=== PATIENT | male | born 1955 | race Caucasian/White ===

== ENCOUNTER → 2018-07-25 | Outpatient (CLI) | payer BC ==
--- NOTE | 2018-07-25 14:22 | US ---
EXAMINATION TYPE: US venous doppler duplex LE RT DATE OF EXAM: 07/25/2018 1:25 PM COMPARISON: NONE CLINICAL HISTORY: M79.661, pain right leg, R22.41 swelling right leg. SIDE PERFORMED: Right TECHNIQUE: The lower extremity deep venous system is examined utilizing real time linear array sonog yogi with graded compression, doppler sonography and color-flow sonography. VESSELS IMAGED: External Iliac Vein (EIV) Common Femoral Vein Deep Femoral Vein Greater Saphenous Vein * Femoral Vein Popliteal Vein Small Saphenous Vein * Proximal Calf Veins (* superficial vessels) Right Leg: Negative for DVT Grayscale, color doppler, spectral doppler imaging performed of the deep veins of the right lower ext remity. There is normal flow, compressibility, vascular waveforms. IMPRESSION: No ultrasound evidence for acute DVT in the right lower extremity.
== END | disposition home or self-care (01) ==
LOC: RADUSWWP 13:01
PROVIDERS: ATTEND Internal Medicine
DX: R22.41 Localized swelling, mass and lump, right lower limb (principal); M79.661 Pain in right lower leg

== ENCOUNTER → 2020-07-11 | Outpatient (CLI) | payer OTHER ==
--- NOTE | 2020-07-11 11:05 | ECHOS ---
STRESS ECHOCARDIOGRAM INDICATIONS: Hypertension. MEDICATIONS: Lovastatin, amlodipine, Besylate, famotidine, Ibuprofen, trazodone. BASELINE HEART RATE: 67 BASELINE BLOOD PRESSURE: 141/69 MAXIMUM HEART RATE: 149 MAXIMUM BLOOD PRESSURE: 210/88 85% MPHR: 133 100% MPHR: 156 METS: 5.4 MAXIMUM STAGE REACHED: 2 TOTAL EXERCISE TIME: 4:00 CLINICAL INFORMATION: Baseline EKG revealed normal sinus rhythm without significant ST changes. Patient walked on standard Griffin protocol for 4 minutes, achieved a maximal heart rate of 149 beats per minute which is more than 85% of predicted maximal. Developed fatigue and shortness of breath but did not have angina or arrhythmia. EKG did not reveal any ST- segment changes to indicate ischemia. By EKG criteria, this is a negative stress test with limited exercise capacity. There was no angina or arrhythmia. Exercise capacity was limited. Baseline echo images revealed normal wall motion, wall thickening of all segments. Echo contrast was administered to optimize the quality of images. At peak exercise, there was good augmentation of left ventricular wall motion and wall thickening of all segments suggesting that there is no evidence of stress-induced ischemia on this study. FINAL IMPRESSION: 1. By EKG criteria, this is a negative stress test with limited exercise capacity. 2. Normal stress echocardiogram. Exercise capacity was limited. MMODL / IJN: [id number] /
== END | disposition home or self-care (01) ==
LOC: RADNMMAIN 09:02
PROVIDERS: ATTEND Family Medicine
DX: I10 Essential (primary) hypertension (principal); R06.09 Other forms of dyspnea
CPT/HCPCS: C8930; Q9950; 93351

== ENCOUNTER 2022-03-26 07:13 | Day surgery (SDC) | payer MEDICARE, OTHER ==
[~2022-03-26 07:13] MED LIST: ACETAMINOPHEN TAB 500 MG TAB PO PRN; HEPARIN SODIUM,PORCINE/PF 5,000 UNIT/0.5 ML SYRINGE SQ PRN
[2022-03-26] MEDS ORDERED: LIDOCAINE 1% (10MG/ML) FOR IV START INTRADERMA PRN (07:55)
[2022-03-26] MEDS ORDERED: METOCLOPRAMIDE 5 MG/ML 2 ML VIAL IVP PRN (07:55)
[2022-03-26] MEDS ORDERED: HYDROmorphone 0.5 MG/0.5 ML SYRINGE IVP PRN (07:55)
[2022-03-26] MEDS ORDERED: MIDAZOLAM 2 MG/2 ML VIAL IV PRN (07:55)
[2022-03-26] MEDS ORDERED: DEXAMETHASONE SOD PHOSPHATE 4 MG/ML 1 ML VIAL IV ONE (07:55)
[2022-03-26] MEDS ORDERED: ONDANSETRON 4 MG/2 ML VIAL IVP ONE (07:55)
[2022-03-26] MEDS ORDERED: LACTATED RINGERS 1,000 ML IV SCH (07:55)
--- NOTE | 2022-03-26 08:48 | P.GSHP ---
History of Present Illness H&P Date: 03/26/22 Chief Complaint: Right upper Quadrant pain This is a 66-year-old male presents today for laparoscopically cholecystectomy patient's had complaints of right quadrant pain. He cholelithiasis Past Medical History Past Medical History: Hypertension Additional Past Medical History / Comment(s): sleep apnea, arthritis in back - nerve involvement History of Any Multi-Drug Resistant Organisms: None Reported Past Surgical History: Adenoidectomy, Orthopedic Surgery, Tonsillectomy Additional Past Surgical History / Comment(s): shaved down the back of tongue and uvula for sleep apnea. rt hand surgery, colonoscopy Past Anesthesia/Blood Transfusion Reactions: No Reported Reaction Smoking Status: Never smoker - Past Family History Mother Family Medical History: Cancer Additional Family Medical History / Comment(s): breast Father Family Medical History: Diabetes Mellitus Additional Family Medical History / Comment(s): colostomy Medications and Allergies Home Medications Medication Instructions Recorded Confirmed Type Cyclobenzaprine [Flexeril] 5 mg PO TID PRN 03/22/15 03/26/22 History Gabapentin 300 mg PO TID 03/22/22 03/26/22 History Losartan/Hydrochlorothiazide 1 tab PO DAILY 03/22/22 03/26/22 History [Losartan-Hctz 100-25 mg Tab] QUEtiapine [SEROquel] 50 mg PO HS 03/22/22 03/26/22 History Spironolactone 25 mg PO DAILY 03/22/22 03/26/22 History amLODIPine BESYLATE 10 mg PO DAILY 03/22/22 03/26/22 History Allergies Allergy/AdvReac Type Severity Reaction Status Date / Time No Known Allergies Allergy Verified 03/26/22 07:56 Surgical - Exam Vital Signs Temp Pulse Resp BP Pulse Ox 96.1 F L 77 16 148/94 95 03/26/22 08:10 03/26/22 08:10 03/26/22 08:10 03/26/22 08:10 03/26/22 08:10 - General well developed, well nourished, no distress - Eyes PERRL - ENT normal pinna - Neck no masses - Respiratory normal expansion - Cardiovascular Rhythm: regular - Abdomen Abdomen: soft, non tender - Rectum Rectum: normal sphincter tone, no hemorrhoids Assessment and Plan Plan: Right upper quadrant pain. Cholelithiasis. We'll perform laparoscopically cholecystectomy
[2022-03-26] MEDS ORDERED: fentaNYL (PF) 50 MCG/ML 2 ML AMP ONE (09:04)
[2022-03-26] MEDS ORDERED: HYDROmorphone (PF) 1 MG/ML ONE (09:04)
[2022-03-26] MEDS ORDERED: NEOSTIGMINE 1 MG/ML 10 ML VIAL ONE (09:04)
[2022-03-26] MEDS ORDERED: KETOROLAC 15 MG/ML 1 ML VIAL ONE (09:04)
[2022-03-26] MEDS ORDERED: ROCURONIUM 10 MG/ML (5 ML VIAL) IV ONE (09:04)
[2022-03-26] MEDS ORDERED: LIDOCAINE 2% INJ 20 MG/ML (2 ML VIAL) ONE (09:04)
[2022-03-26] MEDS ORDERED: SUCCINYLCHOLINE CHLORIDE 100 MG/5 ML SYR IV ONE (09:04)
[2022-03-26] MEDS ORDERED: MIDAZOLAM 2 MG/2 ML VIAL ONE (09:04)
[2022-03-26] MEDS ORDERED: PROPOFOL 10 MG/ML 20 ML VIAL IV ONE (09:04)
[2022-03-26] MEDS ORDERED: GLYCOPYRROLATE 0.2 MG/ML 2 ML VIAL ONE (09:04)
[2022-03-26] MEDS ORDERED: BUPIVACAIN-EPI 0.25%-1:200,000 30 ML VIAL SQ ONE (09:34)
[2022-03-26] MEDS ORDERED: LACTATED RINGERS 1,000 ML IV ONE (09:34)
--- NOTE | 2022-03-26 10:05 | P.OP ---
Date of Procedure: 03/26/22 Preoperative Diagnosis: Chronically cholecystitis Cholelithiasis Postoperative Diagnosis: Chronic cholecystitis Cholelithiasis Procedure(s) Performed: Laparoscopic cholecystectomy Anesthesia: JONEL Surgeon: Shan Villanueva Estimated Blood Loss (ml): 5 Pathology: other (Gallbladder) Condition: stable Disposition: PACU Description of Procedure: The patient was placed on the operating table. The patient received a general endotracheal tube anesthesia. The patients abdomen was prepped and draped in the usual sterile fashion. Through an infraumbilical stab incision, the fascia of the anterior abdominal wall was grasped with a pair of Kochers and then the Veress needle was placed in the peritoneal cavity. Position of the Veress needle was confirmed with positive drop test. The abdomen was then insufflated. After adequate insufflation, the 10 mm trocar was placed in the peritoneal cavity. Following this the laparoscope was placed in the peritoneal cavity. The patient was placed in the head-up, right side up position and then a 5 mm trocar was placed in the right lateral and right subcostal position under direct visualization. A 8 mm trocar was placed in the epigastric position. The gallbladder was grasped in the fundus and infundibulum. Traction on the gallbladder was placed in the lateral and the cephalad positions. The triangle of Calot was visualized.. The cystic duct was bluntly dissected until the union of the cystic duct and common bile duct was seen. A critical view of safety was achieved. The cystic duct was then divided and sealed with the Harmonic scissors. A PDS Endoloop was then placed throughout the cystic duct stump. The cystic artery divided and sealed with the Harmonic scissors. The gallbladder was then removed from the liver bed using Harmonic scissors. The gallbladder was then extracted through the epigastric port site. Operative field was checked for any bleeding spots and Harmonic scissors was used to coagulate the liver bed. The abdomen was irrigated. The trocars were removed. The skin was closed using interrupted 3-0 Vicryl suture. Dermabond dressing were applied. The patient tolerated the procedure well.
[2022-03-26 10:06] VITALS: TEMP 97.1
[2022-03-26 10:36] VITALS: RESP 16
[2022-03-26 11:37] VITALS: BP 126/74; PULSE 77
== END 2022-03-26 12:17 | disposition home or self-care (01) ==
LOC: OR 07:13
PROVIDERS: ATTEND Surgery
DX: K80.10 Calculus of gallbladder with chronic cholecystitis without obstruction (principal); I10 Essential (primary) hypertension; G47.33 Obstructive sleep apnea (adult) (pediatric); F41.9 Anxiety disorder, unspecified; Z80.9 Family history of malignant neoplasm, unspecified; Z83.3 Family history of diabetes mellitus; Z79.899 Other long term (current) drug therapy
CPT/HCPCS: 88304; 47562; J2250; J1100; J2710; J0690; J2405; J3010; J1170; J1885; J0330; J2704; J1644; J2001

== ENCOUNTER → 2022-05-19 | Outpatient (CLI) | payer MEDICARE, OTHER ==
--- NOTE | 2022-05-19 10:25 | MR ---
EXAMINATION TYPE: MR lumbar spine wo con DATE OF EXAM: 05/19/2022 9:38 AM COMPARISON: THIS EXAM WAS READ DURING PACS DOWNTIME, NO PRIORS AVAILABLE. 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 IV Contrast: None FINDINGS: Alignment: The lumbar vertebral bodies have preserved heights and alignment. Cord: The conus medullaris and the distal spinal cord appear unremarkable with regards to their signa l intensity and morphology. Bones/Discs: Scattered Modic endplate changes. There are scattered high T1/high T2 signal areas scatt ered throughout the vertebral bodies likely representing hemangiomas versus focal fat. Multilevel deg enerative disc disease is noted and most pronounced at the L5-S1. Multilevel disc desiccation is pres ent. L1-L2: No significant disc pathology. Spinal canal is patent. The neural foramen are patent. L2-L3: Disc bulge with facet joint arthropathy without significant spinal canal or neural foraminal s tenosis. Mild narrowing of the ventral subarachnoid space. L3-L4: No significant disc pathology. Spinal canal is patent. The neural foramen are patent. L4-L5: Disc bulge with central disc protrusion without significant spinal canal stenosis. Facet joint arthropathy with mild to moderate left and mild right neural foraminal stenosis. L5-S1: Disc bulge with central and right central disc extrusion without significant spinal canal sten osis. Facet joint arthropathy with mild to moderate left and mild right neural foraminal stenosis. Th ere appears to be superior and inferior migration of Other findings: Parapelvic renal cysts bilaterally. IMPRESSION: 1. L4-L5 and L5-S1 disc herniations without significant spinal canal stenosis. 2. Multilevel disc degeneration changes with moderate left neural foraminal stenosis at L4-L5.
== END | disposition home or self-care (01) ==
LOC: RADMRIMAIN 08:29
PROVIDERS: ATTEND Orthopaedic Surgery
DX: M47.27 Other spondylosis with radiculopathy, lumbosacral region (principal); M51.17 Intervertebral disc disorders with radiculopathy, lumbosacral region; M48.062 Spinal stenosis, lumbar region with neurogenic claudication; M99.74 Connective tissue and disc stenosis of intervertebral foramina of sacral region
CPT/HCPCS: 72148

== ENCOUNTER 2022-08-07 12:36 | Emergency (ER) | payer MEDICARE, OTHER ==
[2022-08-07 12:43] VITALS: TEMP 98.2
[2022-08-07] MEDS ORDERED: SODIUM CHLORIDE 0.9% 1,000 ML IV STA ×2 (12:49)
--- NOTE | 2022-08-07 12:57 | ED ---
Dizziness HPI - General Chief Complaint: Dizziness Stated Complaint: LOW BP Time Seen by Provider: 08/07/22 12:43 Source: patient Mode of arrival: EMS Limitations: no limitations - History of Present Illness Initial Comments: This patient is a 66-year-old man who presents to have evaluation after he became lightheaded, sweaty and felt like he was going to pass out. The patient states he had been waiting with his and a doctor's clinic waiting room. He states that his had an appointment to see her physician. He was feeling well and then suddenly noticed that he was getting lightheaded and sweaty. The patient states it felt like he was going to his consciousness. Ambulance was called and EMS was not able to detect a blood pressure. They transported him here. Patient states that he is feeling better, the sweatiness has cleared up. He is not feeling like he is going to pass out. Patient denies having any associated chest pain, dyspnea, nausea or vomiting. The patient states that prior to this she was feeling in his usual state of health. He states in fact that he was feeling pretty good he didn't even have to take his chronic pain medication related to the usual back pain. Complaint: lightheadedness Onset/Timin -: hour(s) Timing: sudden onset Description: near-syncope History of Same: No History of Trauma: No Severity: moderate Improves With: remaining still Worsens With: nothing Associated Symptoms: diaphoresis - Related Data Home Medications Medication Instructions Recorded Confirmed Cyclobenzaprine [Flexeril] 5 mg PO TID PRN 03/22/15 08/07/22 Gabapentin 300 mg PO TID 03/22/22 08/07/22 Losartan/Hydrochlorothiazide 1 tab PO DAILY 03/22/22 08/07/22 [Losartan-Hctz 100-25 mg Tab] HYDROcodone/APAP 7.5-325MG [Story 1 tab PO BID PRN 08/07/22 08/07/22 7.5-325] Spironolactone 50 mg PO DAILY 08/07/22 08/07/22 Allergies Allergy/AdvReac Type Severity Reaction Status Date / Time No Known Allergies Allergy Verified 08/07/22 13:19 Review of Systems ROS Statement: Those systems with pertinent positive or pertinent negative responses have been documented in the HPI. ROS Other: All systems not noted in ROS Statement are negative. Constitutional: Denies: fever, chills, weakness Eyes: Denies: vision change Respiratory: Denies: cough, dyspnea Cardiovascular: Reports: as per HPI, syncope (Near-syncope). Denies: chest pain, palpitations, edema Gastrointestinal: Denies: abdominal pain, nausea, vomiting, diarrhea, constipation, melena, hematochezia Genitourinary: Denies: dysuria, hematuria Musculoskeletal: Reports: back pain (Chronic back pain, none today) Skin: Denies: rash Neurological: Denies: headache, weakness, numbness Past Medical History Past Medical History: Hypertension Additional Past Medical History / Comment(s): sleep apnea, arthritis in back - nerve involvement History of Any Multi-Drug Resistant Organisms: None Reported Past Surgical History: Adenoidectomy, Cholecystectomy, Orthopedic Surgery, Tonsillectomy Additional Past Surgical History / Comment(s): shaved down the back of tongue an d uvula for sleep apnea. rt hand surgery, colonoscopy Past Anesthesia/Blood Transfusion Reactions: No Reported Reaction Past Psychological History: Anxiety Smoking Status: Never smoker Past Alcohol Use History: Occasional Past Drug Use History: None Reported - Past Family History Mother Family Medical History: Cancer Additional Family Medical History / Comment(s): breast Father Family Medical History: Diabetes Mellitus Additional Family Medical History / Comment(s): colostomy General Exam Limitations: no limitations General appearance: alert, in no apparent distress Head exam: Present: atraumatic, normocephalic Eye exam: Present: normal appearance. Absent: scleral icterus, conjunctival injection Neck exam: Present: normal inspection Respiratory exam: Present: normal lung sounds bilaterally. Absent: respiratory distress, wheezes, rales, rhonchi, stridor Cardiovascular Exam: Present: regular rate, normal rhythm, normal heart sounds. Absent: systolic murmur, diastolic murmur, rubs, gallop GI/Abdominal exam: Present: soft. Absent: distended, tenderness, guarding, rebound, rigid, mass Extremities exam: Present: normal inspection, normal capillary refill. Absent: pedal edema, calf tenderness Back exam: Present: normal inspection. Absent: CVA tenderness (R), CVA tenderness (L) Neurological exam: Present: alert, CN II-XII intact. Absent: motor sensory deficit Skin exam: Present: warm, dry, intact, pallor. Absent: rash Course Vital Signs 08/07/22 08/07/22 08/07/22 12:37 12:43 13:01 Temperature 98.2 F Pulse Rate 78 77 78 Respiratory 18 18 15 Rate Blood Pressure 86/61 92/58 95/64 O2 Sat by Pulse 96 92 L Oximetry 08/07/22 08/07/22 08/07/22 13:10 13:20 13:30 Temperature Pulse Rate 76 76 76 Respiratory 19 15 17 Rate Blood Pressure 99/65 105/69 105/69 O2 Sat by Pulse 93 L 95 95 Oximetry 08/07/22 08/07/22 08/07/22 13:40 13:50 14:00 Temperature Pulse Rate 79 78 79 Respiratory 15 12 12 Rate Blood Pressure 108/67 110/73 110/73 O2 Sat by Pulse 99 97 98 Oximetry 08/07/22 14:10 Temperature Pulse Rate 75 Respiratory 18 Rate Blood Pressure 103/72 O2 Sat by Pulse 97 Oximetry EKG Findings - EKG Results: EKG: interpreted by ERMD, sinus rhythm, normal axis, normal ST/T - Blocks, [place], Hypertrophy, ST Abn: AV and intraventricular conduction: right bundle branch block (fixed/intermittent, complete/incomplete) (Incomplete) Medical Decision Making - Medical Decision Making I have interpreted the chest x-ray as being within normal limits. No apparent condition contributing to presyncope On reevaluation, the patient feels well. All of the symptoms have resolved and he would like to go home. We discussed the patient has elevated creatinine versus normal range. There is no previous for comparison. Patient will take plenty of fluids and have this rechecked. We discussed appropriate further care and follow-up as well as return parameters. - Lab Data Result diagrams: 08/07/22 12:49 08/07/22 12:49 Lab Results 08/07/22 08/07/22 08/07/22 Range/Units 12:49 12:49 12:49 WBC 9.0 (3.8-10.6) k/uL RBC 4.73 (4.30-5.90) m/uL Hgb 14.3 (13.0-17.5) gm/dL Hct 42.5 (39.0-53.0) % MCV 89.8 (80.0-100.0) fL MCH 30.3 (25.0-35.0) pg MCHC 33.8 (31.0-37.0) g/dL RDW 13.1 (11.5-15.5) % Plt Count 185 (150-450) k/uL MPV 9.6 Neutrophils % 73 % Lymphocytes % 16 % Monocytes % 6 % Eosinophils % 1 % Basophils % 1 % Neutrophils # 6.6 (1.3-7.7) k/uL Lymphocytes # 1.4 (1.0-4.8) k/uL Monocytes # 0.6 (0-1.0) k/uL Eosinophils # 0.1 (0-0.7) k/uL Basophils # 0.1 (0-0.2) k/uL Sodium 139 (137-145) mmol/L Potassium 4.4 (3.5-5.1) mmol/L Chloride 106 (98-107) mmol/L Carbon Dioxide 23 (22-30) mmol/L Anion Gap 10 mmol/L BUN 17 (9-20) mg/dL Creatinine 1.89 H (0.66-1.25) mg/dL Est GFR (CKD-EPI)AfAm 42 (>60 ml/min/1.73 sqM) Est GFR (CKD-EPI)NonAf 36 (>60 ml/min/1.73 sqM) Glucose 106 H (74-99) mg/dL Plasma Lactic Acid Rd 1.8 (0.7-2.0) mmol/L Calcium 8.7 (8.4-10.2) mg/dL Total Bilirubin 1.2 (0.2-1.3) mg/dL AST 45 (17-59) U/L ALT 57 H (4-49) U/L Alkaline Phosphatase 119 (38-126) U/L Troponin I (0.000-0.034) ng/mL Total Protein 6.4 (6.3-8.2) g/dL Albumin 4.1 (3.5-5.0) g/dL Coronavirus (PCR) (Not Detectd) 08/07/22 08/07/22 Range/Units 12:49 12:54 WBC (3.8-10.6) k/uL RBC (4.30-5.90) m/uL Hgb (13.0-17.5) gm/dL Hct (39.0-53.0) % MCV (80.0-100.0) fL MCH (25.0-35.0) pg MCHC (31.0-37.0) g/dL RDW (11.5-15.5) % Plt Count (150-450) k/uL MPV Neutrophils % % Lymphocytes % % Monocytes % % Eosinophils % % Basophils % % Neutrophils # (1.3-7.7) k/uL Lymphocytes # (1.0-4.8) k/uL Monocytes # (0-1.0) k/uL Eosinophils # (0-0.7) k/uL Basophils # (0-0.2) k/uL Sodium (137-145) mmol/L Potassium (3.5-5.1) mmol/L Chloride (98-107) mmol/L Carbon Dioxide (22-30) mmol/L Anion Gap mmol/L BUN (9-20) mg/dL Creatinine (0.66-1.25) mg/dL Est GFR (CKD-EPI)AfAm (>60 ml/min/1.73 sqM) Est GFR (CKD-EPI)NonAf (>60 ml/min/1.73 sqM) Glucose (74-99) mg/dL Plasma Lactic Acid Rd (0.7-2.0) mmol/L Calcium (8.4-10.2) mg/dL Total Bilirubin (0.2-1.3) mg/dL AST (17-59) U/L ALT (4-49) U/L Alkaline Phosphatase (38-126) U/L Troponin I 0.014 (0.000-0.034) ng/mL Total Protein (6.3-8.2) g/dL Albumin (3.5-5.0) g/dL Coronavirus (PCR) Not Detected (Not Detectd) Disposition Clinical Impression: Near syncope, Acute kidney injury, Dehydration Disposition: HOME SELF-CARE Condition: Good Instructions (If sedation given, give patient instructions): Dehydration (ED), Near Syncope (ED) Additional Instructions: As we discussed, your creatinine was a little high at 1.89. Have this number rechecked in 3-5 days. Drink plenty of fluids. Return if any of the symptoms we discussed develop or if your worsening in anyway. Is patient prescribed a controlled substance at d/c from ED?: No Referrals: Ann Marie Klein, [Primary Care Provider] - 1-2 days
[2022-08-07 13:04] LABS: Basophils # (A) 0.1 k/uL (0-0.2); Basophils % (A) 1 %; Eosinophils # (A) 0.1 k/uL (0-0.7); Eosinophils % (A) 1 %; HCT 42.5 % (39.0-53.0); HGB 14.3 gm/dL (13.0-17.5); Lymphocytes # (A) 1.4 k/uL (1.0-4.8); Lymphocytes % (A) 16 %; MCH 30.3 pg (25.0-35.0); MCHC 33.8 g/dL (31.0-37.0); MCV 89.8 fL (80.0-100.0); Mean Platelet Volume 9.6; Monocytes # (A) 0.6 k/uL (0-1.0); Monocytes % (A) 6 %; Neutrophils # (A) 6.6 k/uL (1.3-7.7); Neutrophils % (A) 73 %; Platelet Count 185 k/uL (150-450); RBC 4.73 m/uL (4.30-5.90); RDW 13.1 % (11.5-15.5)
--- NOTE | 2022-08-07 13:15 | XR ---
EXAMINATION TYPE: XR chest 1V portable DATE OF EXAM: 08/07/2022 COMPARISON: 03/01/2013 INDICATION: Lightheaded TECHNIQUE: Single frontal view of the chest is obtained. FINDINGS: The heart size is normal. The pulmonary vasculature is normal. The lungs are clear. Degree of inspiration is somewhat limited. IMPRESSION: 1. No acute pulmonary process.
[2022-08-07 13:17] LABS: Albumin 4.1 g/dL (3.5-5.0); Calcium 8.7 mg/dL (8.4-10.2); Total Bilirubin 1.2 mg/dL (0.2-1.3); Total Protein 6.4 g/dL (6.3-8.2)
[2022-08-07 13:29] LABS: Potassium 4.4 mmol/L (3.5-5.1)
[2022-08-07 15:44] VITALS: RESP 15
[2022-08-07 16:28] LABS: Appearance,Urine Clear (Clear); Bilirubin,Urine Negative (Negative); Blood,Urine Negative (Negative); Color,Urine Yellow; Glucose,Urine (UA) Negative (Negative); Ketones,Urine Negative (Negative); Leukocyte Esterase,Urine Negative (Negative); Nitrite,Urine Negative (Negative); Protein,Urine Negative (Negative); Urobilinogen,Urine <2.0 mg/dL (<2.0)
[2022-08-07 17:43] VITALS: BP 117/62; PULSE 81
== END 2022-08-07 17:42 | disposition home or self-care (01) ==
LOC: EC 12:36
DX: R55 Syncope and collapse (principal); E86.0 Dehydration; N17.9 Acute kidney failure, unspecified; I10 Essential (primary) hypertension; F41.9 Anxiety disorder, unspecified; Z20.822 Contact with and (suspected) exposure to COVID-19; Z79.899 Other long term (current) drug therapy
CPT/HCPCS: 36415; 71045; 80053; 81003; 83605; 84484; 85025; 87635; 93005; 96360; 96361; 99285

== ENCOUNTER → 2024-01-24 | Outpatient (CLI) | payer MEDICARE | END | disposition home or self-care (01) | LOC: LABPAT 16:01 | PROVIDERS: ATTEND Orthopaedic Surgery | DX: Z01.812 Encounter for preprocedural laboratory examination (principal); M17.12 Unilateral primary osteoarthritis, left knee; Z22.322 Carrier or suspected carrier of Methicillin resistant Staphylococcus aureus | CPT/HCPCS: 87070 ==

== ENCOUNTER 2024-02-24 05:42 | Day surgery (SDC) | payer MEDICARE, OTHER ==
[~2024-02-24 05:42] MED LIST changes: -ACETAMINOPHEN TAB 500 MG TAB PO PRN; -HEPARIN SODIUM,PORCINE/PF 5,000 UNIT/0.5 ML SYRINGE SQ PRN; +TRANEXAMIC 1,000 MG/100ML-NACL 1,000 MG in SALINE 1 100ML.BAG IVPB PRN
[2024-02-24] MEDS: MIDAZOLAM 2 MG/2 ML VIAL IVP ONE (06:48)
--- NOTE | 2024-02-24 06:55 | HP ---
HISTORY AND PHYSICAL DATE OF SURGERY: HISTORY OF PRESENT ILLNESS: Russell Cruz is a 68-year-old gentleman, seen with progressive left knee pain. We discussed treatment options. He elected to proceed with left total knee arthroplasty. Consent regarding the procedure was obtained. Medical clearance was provided by Dr. Felix Klein. PAST MEDICAL HISTORY: Hypertension, hyperlipidemia. PAST SURGICAL HISTORY: Noncontributory. DAILY MEDICATIONS: 1. Amlodipine. 2. Atorvastatin. 3. Hydrocodone. ALLERGIES: None. SOCIAL HISTORY: Denies current tobacco use. PHYSICAL EVALUATION OF THE LEFT KNEE: Range of motion is -2/3 to 120 degrees. He has a mild effusion. Tenderness along the medial joint line. Crepitance along the medial patellofemoral compartments with range of motion. Pain with patellofemoral compression. Ligaments are stable. Hip rotation is without pain. His distal neurovascular exam is intact. IMAGING STUDIES: Radiographs of the left knee reveal severe osteoarthritic changes. IMPRESSION: 1. Left knee osteoarthritis. 2. Hypertension. 3. Hyperlipidemia. PLAN: Left total knee arthroplasty. MMODL / IJN: [id number] /
[2024-02-24] MEDS ORDERED: MIDAZOLAM 2 MG/2 ML VIAL IV PRN (07:00)
[2024-02-24] MEDS: DEXAMETHASONE SOD PHOSPHATE 4 MG/ML 1 ML VIAL IV ONE (07:14)
[2024-02-24] MEDS: ONDANSETRON 4 MG/2 ML VIAL IVP ONE (07:14)
[2024-02-24] MEDS: MELOXICAM 7.5 MG TAB PO PRN (07:15)
[2024-02-24] MEDS: ACETAMINOPHEN TAB 500 MG TAB PO PRN (07:15)
[2024-02-24] MEDS: LACTATED RINGERS 1,000 ML IV SCH (07:15)
[2024-02-24] MEDS ORDERED: DEXAMETHASONE SOD PHOSPHATE 4 MG/ML 1 ML VIAL ONE (07:24)
[2024-02-24] MEDS ORDERED: SUCCINYLCHOLINE CHLORIDE 200 MG/10 ML VIAL IV ONE (07:24)
[2024-02-24] MEDS ORDERED: TRANEXAMIC 1,000 MG/100ML-NACL PREMIX BAG ONE (07:24)
[2024-02-24] MEDS ORDERED: LIDOCAINE 1% INJ 10MG/ML (20 ML MDV) ONE (07:24)
[2024-02-24] MEDS ORDERED: PROPOFOL 10 MG/ML 20 ML VIAL IV ONE (07:24)
[2024-02-24] MEDS ORDERED: ROPIVACAINE 5 MG/ML 30 ML VIAL ONE (07:24)
[2024-02-24] MEDS ORDERED: HYDROmorphone (PF) 1 MG/ML ONE (07:24)
[2024-02-24] MEDS ORDERED: fentaNYL (PF) 50 MCG/ML 2 ML AMP ONE (07:24)
[2024-02-24] MEDS ORDERED: GLYCOPYRROLATE 0.2 MG/ML 2 ML VIAL ONE (07:24)
[2024-02-24] MEDS ORDERED: ePHEDrine 50 MG/ML 1 ML VIAL ONE (07:24)
[2024-02-24] MEDS ORDERED: NEOSTIGMINE 1 MG/ML 10 ML VIAL ONE (07:24)
[2024-02-24] MEDS ORDERED: PHENYLEPHRINE 10 MG/ML VIAL ONE (07:24)
[2024-02-24] MEDS ORDERED: ROCURONIUM 10 MG/ML (5 ML VIAL) IV ONE (07:24)
[2024-02-24] MEDS: LACTATED RINGERS 1,000 ML IV ONE ×3 (07:29→09:25)
--- NOTE | 2024-02-24 07:46 | P.ANPRN ---
Procedure Note - Anesthesia - Nerve Block Performed Left Kayyck Single Time Out Performed: Yes Date of Procedure: 02/24/24 Procedure Start Time: 06:47 Procedure Stop Time: 06:52 Location of Patient: PreOp Indication: Acute Post-Operative Pain, Analgesia, Requested by Surgeon Sedation Type: Sedate with meaningful contact maintained Preparation: Sterile Prep Position: Right Lateral Catheter: None Needle Types: Pajunk Needle Gauge: 21 Ultrasound used to visualize needle placement: Yes Ultrasound used to observe medication spread: Yes Injectate: 0.5% Ropivacaine (see comment for volume) (Ropiv 25ml+decadron 4mg. AttemptX1) Blood Aspirated: No Pain Paresthesia on Injection Noted: No Resistance on Injection: Normal Image Stored and Saved: Yes Events: Uneventful and Well Tolerated
--- NOTE | 2024-02-24 07:48 | P.ANPRN ---
Procedure Note - Anesthesia - Nerve Block Performed Left Adductor Canal Infusion Time Out Performed: Yes Date of Procedure: 02/24/24 Procedure Start Time: 06:53 Procedure Stop Time: 06:58 Location of Patient: PreOp Indication: Acute Post-Operative Pain, Analgesia, Requested by Surgeon Sedation Type: Sedate with meaningful contact maintained Preparation: Sterile Prep Position: Supine Catheter: Indwelling Needle Types: On-Q Ultrasound used to visualize needle placement: Yes Ultrasound used to observe medication spread: Yes Injectate: 0.5% Ropivacaine (see comment for volume) (Ropiv 15ml+decadron 4mg. AttemptX1) Blood Aspirated: No Pain Paresthesia on Injection Noted: No Resistance on Injection: Normal Image Stored and Saved: Yes Events: Uneventful and Well Tolerated
[2024-02-24] MEDS: ceFAZolin 1,000 MG in SODIUM CHLORIDE 0.9% 1,000 ML IRRIGATION ONE (07:55)
[2024-02-24] MEDS ORDERED: HYDROcodone/APAP 5-325MG 1 EACH TAB PO PRN (09:29)
[2024-02-24] MEDS ORDERED: NALOXONE 0.4 MG/ML 1 ML VIAL IV PRN (09:29)
[2024-02-24] MEDS ORDERED: LACTATED RINGERS 1,000 ML IV ONE (09:29)
[2024-02-24] MEDS ORDERED: ONDANSETRON 4 MG/2 ML VIAL IVP PRN (09:29)
[2024-02-24] MEDS ORDERED: HYDROmorphone 0.5 MG/0.5 ML SYRINGE IVP PRN ×3 (09:29)
--- NOTE | 2024-02-24 09:29 | P.OP ---
Date of Procedure: 02/24/24 Preoperative Diagnosis: Left knee osteoarthritis Postoperative Diagnosis: Left knee osteoarthritis Procedure(s) Performed: Left total knee arthroplasty Implants: 1. DePuy attune size 7 cruciate retaining left cemented femur 2. DePuy attune size 7 fixed-bearing cemented tibial baseplate 3. DePuy attune size 7 fixed-bearing cruciate retaining 6 mm polyethylene tibial insert 4. DePuy attune 38 mm all polyethylene cemented patella Anesthesia: GETA, regional (Adductor canal catheter, I) Surgeon: Aayush Yan Ad Trafficker #1: Lester Abdalla Estimated Blood Loss (ml): 35 Pathology: none sent Condition: stable (8) Disposition: PACU Indications for Procedure: 68-year-old patient seen with progressive left knee pain. After having treatment options discussed, he elected to proceed with total knee arthroplasty. Operative Findings: See description of procedure Description of Procedure: Patient was taken to the operative suite after having an adductor canal catheter placed by the department of anesthesia. Patient underwent a general anesthetic by the department of anesthesia. Patient was given preoperative IV intake antibiotics and TXA. A well-padded tourniquet was placed about the left lower extremity. The lower extremity was then prepped and draped in the normal sterile orthopedic fashion. The extremity was elevated, a tourniquet was insufflated to 300. A standard anterior incision was made sharply through skin. Dissection was taken down through the subcutaneous soft tissues down to the extensor mechanism. A medial arthrotomy was performed, patella was everted and knee was flexed. There was advanced osteoarthritis noted. I introduced my distal intramedullary femoral drill. I then introduced the distal femoral cutting jig. Rudy DELGADO secured the cutting jig with 2 pins. I held retractors in position while Rudy DELGADO performed the distal femoral resection through the guide area we now removed her distal femoral cutting guide. We now placed our 4-in-1 femoral cutting block and positioned and it was secured with 2 pins by Rudy DELGADO while I held the block in position. The distal femoral finishing was now completed. A proximal tibial cutting guide was positioned. I held the guide in the appropriate position with both hands well Rudy DELGADO inserted stabilizing pins into the guide. Proximal tibial cut was made. We now placed a trial femoral component into position, along with an appropriate size tibial tray and insert. We now took the knee through range of motion and had full extension good flexion and good overall soft tissue balance noted. The patella was everted and stabilized with 2 towel clips held by Rudy DELGADO while I performed a flush with patellar quad tendon utilizing a fresh sawblade. We templated the patella, appropriate drill holes were made. An appropriate trial patella was positioned, knee was taken through full range of motion with the patella tracking very nicely. The trial patella was removed. Drill holes were made through the femoral component. All trial components were removed after marking off the appropriate rotation of the tibia. Retractors were now positioned along the proximal tibia. An appropriate keel punch was made with the appropriate size tibial guide by myself on Rudy DELGADO assisted by holding retractors. At this point appropriate size implants were chosen and opened. The joint was irrigated copiously with pulse lavage mechanical irrigation. The wound was irrigated with pulse lavage mechanical irrigation. We mixed antibiotic methylmethacrylate. We placed the knee into flexion. We placed multiple retractors assisted by Rudy DELGADO to expose the proximal tibia. Once the methyl methacrylate was ready, the tibial component was ceme nted into place removing any excess methylmethacrylate form by both myself and Rudy DELGADO. The femoral component was cemented into place removing the removing any excess methylmethacrylate performed by both myself and Rudy DELGADO. We then inserted the appropriate size polyethylene tibial insert. We made sure that it was locked into position. We took the knee into full extension, and then back in a flexion making sure we had removed any excess methylmethacrylate. The patellar component was then cemented down and secured with clamp. Excess methylmethacrylate removed. We kept the knee in full extension, patellar clamp in position until methylmethacrylate had hardened. Once it had hardened the patellar clamp was removed. The knee was taken through full range of motion. The patella tracked nicely. There was good soft tissue balancing. The tourniquet was now released. Additional hemostasis was achieved via electrocautery. A second gram of TXA was given. The wound again was irrigated with pulse lavage mechanical irrigation. The extensor mechanism was repaired with Ethibond suture. We checked the repair with range of motion and it was stable. The subcutaneous soft tissues were repaired with Vicryl in layers. The skin was approximated with pernio/Dermabond. Sterile dressings were applied followed by loose web roll and Sundeep bandage. The patient was transferred to a bed, and taken to recovery in stable and satisfactory condition. Rudy DELGADO assisted with this complex procedure.
[2024-02-24 09:45] VITALS: TEMP 97.2
[2024-02-24] MEDS: HYDROmorphone 0.5 MG/0.5 ML SYRINGE IVP PRN (09:48)
[2024-02-24] MEDS: ROPIVACAINE 1,100 MG, SODIUM CHLORIDE 0.9% 500 ML 330 ML, EMPTY PAIN BALL 1 EACH MISCELLANE PRN (09:58)
--- NOTE | 2024-02-24 10:05 | XR ---
EXAMINATION TYPE: XR knee limited LT DATE OF EXAM: 02/24/2024 10:00 AM CLINICAL INDICATION:Male, 68 years old with history of Evaluation for Postop abnormality and alignmen t; [facility] COMPARISON: None. TECHNIQUE: XR knee limited LT; examined in Frontal, lateral and oblique projections. FINDINGS: Status post total knee arthroplasty changes with hardware in appropriate alignment and in tact. No evidence of fracture. Subcutaneous lucencies and lucencies within the joint consistent with surgical changes. IMPRESSION: Status post total knee arthroplasty changes with hardware intact and appropriate alignment. No fractu res identified.
[2024-02-24] MEDS: HYDROcodone/APAP 7.5-325MG 1 EACH TAB PO PRN (12:30)
[2024-02-24 12:38] VITALS: RESP 20
[2024-02-24 14:41] VITALS: BP 125/78; PULSE 88
== END 2024-02-24 15:15 | disposition home health service (06) ==
LOC: OR 05:42
PROVIDERS: ATTEND Orthopaedic Surgery
DX: M17.12 Unilateral primary osteoarthritis, left knee (principal); G89.18 Other acute postprocedural pain; I10 Essential (primary) hypertension; E78.5 Hyperlipidemia, unspecified; G47.33 Obstructive sleep apnea (adult) (pediatric); N42.9 Disorder of prostate, unspecified; F41.9 Anxiety disorder, unspecified; Z79.1 Long term (current) use of non-steroidal anti-inflammatories (NSAID); Z79.899 Other long term (current) drug therapy; Z98.890 Other specified postprocedural states
CPT/HCPCS: 97161; 64999; 64448; 73560; 27447; C1776; C1713 ×2; C1751; J2250; J0330; J1100; J2710; J0690 ×2; J2405; J2001; J3010; J1170 ×2; J2795; J2704; J2371